=== PATIENT | female | born 1990 | race Caucasian/White ===

== ENCOUNTER 2018-11-27 20:34 | Emergency (ER) | payer SELFPAY ==
[~2018-11-27] VITALS: Ht 162.6 cm; Wt 77.0 kg
[2018-11-27] MEDS ORDERED: MORPHINE SULFATE 4 MG/ML CPJ (NOT FOR IM USE) IV STA (21:10)
[2018-11-27] MEDS ORDERED: SODIUM CHLORIDE 0.9% 1,000 ML IV ONE ×2 (21:10→22:11)
[2018-11-27] MEDS ORDERED: ONDANSETRON HCL 4MG/2ML INJ IV STA (21:10)
[2018-11-27 22:51] LABS: BASOPHILS % 0.7 % (0.0-2.0); MEAN CORPUSCULAR HEMOGLOBIN 28.9 pg (28.0-32.0); MEAN CORPUSCULAR VOLUME 88.7 fL (81.0-99.0); MEAN PLATELET VOLUME 6.7 fl (7.4-10.4); MONOCYTES % 6.6 % (2.0-8.0); NEUTROPHILS % 60.7 % (40.0-76.0); PLATELET 277 x1000/uL (130-400); RED BLOOD CELL COUNT 4.17 mill/uL (4.2-5.4)
[2018-11-27 22:54] LABS: HCG SCREEN NEGATIVE
[2018-11-27 22:56] LABS: CHLORIDE 111 mEq/L (98-107)
[2018-11-27 23:01] LABS: INR 1.1; PARTIAL THROMBOPLASTIN TIME 30.3 sec (23.4-31.0); PROTHROMBIN TIME 11.1 sec (9.6-11.0)
[2018-11-27 23:04] LABS: ETHANOL BLOOD < 10 mg/dL
[2018-11-28 06:50] VITALS: BP 92/54
== END 2018-11-28 06:51 | disposition home or self-care (01) ==
LOC: ER 20:34
DX: G89.18 Other acute postprocedural pain (principal)
CPT/HCPCS: 36415; 74176; 80053; 80320; 83690; 84484; 84703; 85025; 85610; 85730; 96361; 96374; 96375; 99284; J2270; J2405; J7030; G0480